=== PATIENT | male | born 1970 | race Caucasian/White ===

== ENCOUNTER 2019-01-14 17:11 | Emergency (ER) | payer SELFPAY ==
[2019-01-14 17:32] VITALS: BP 156/81; PULSE 83; TEMP 97.8; BMI 40.1
--- NOTE | 2019-01-14 18:29 | PDOC ---
History of Present Illness - General Chief Complaint: Pain, Acute Stated Complaint: KNEE PAIN Time Seen by Provider: 01/14/19 18:09 History Source: Patient Exam Limitations: Clinical Condition - History of Present Illness Initial Comments: 01/14/19 18:36 Patient with history of chronic knee arthritis the seen by pain management on oxycodone present for refill of medication as he is visiting from [place] and ran out of medication. Patient reported severe pain to right knee. Denies any other symptoms Timing/Duration: constant Past History - Past Medical History Allergies/Adverse Reactions: Allergies Allergy/AdvReac Type Severity Reaction Status Date / Time No Known Allergies Allergy Verified 01/14/19 17:30 Home Medications: Ambulatory Orders Oxycodone HCl [Roxicodone] 15 mg PO TID PRN #6 tablet MDD 3 01/14/19 - Suicide/Smoking/Psychosocial Hx Smoking History: Never smoked Information on smoking cessation initiated: No Hx Alcohol Use: No Drug/Substance Use Hx: No Review of Systems - Review of Systems Able to Perform ROS?: Yes Is the patient limited Spanish proficient: No Constitutional: No: Weakness HEENTM: No: Symptoms Reported Respiratory: No: Symptoms reported Cardiac (ROS): No: Symptoms Reported ABD/GI: No: Symptoms Reported Musculoskeletal: Yes: Symptoms Reported, See HPI, Joint Pain (right knee), Joint Stiffness (right knee) Neurological: No: Numbness, Paresthesia, Tingling All Other Systems: Reviewed and Negative *Physical Exam - Vital Signs Last Vital Signs Temp Pulse Resp BP Pulse Ox 97.8 F 83 16 156/81 99 01/14/19 17:30 01/14/19 17:30 01/14/19 17:30 01/14/19 17:30 01/14/19 17:30 - Physical Exam Comments: 01/14/19 18:38 GENERAL: Well developed, well nourished. Awake and alert in moderate acute distress. CARDIOVASCULAR: Regular rate and rhythm. No murmurs, rubs, or gallops. PULMONARY: No evidence of respiratory distress. MUSCULOSKELETAL : Moderate tenderness to lateral aspect of right knee. Increased tenderness with anterior posterior drawer tests. No knee subluxation or laxity. No bony deformities SKIN: Warm and dry. Normal capillary refill. No rashes. No jaundice. NEUROLOGICAL: Alert, awake, appropriate. No motor deficits in the lower extremities. Gait is normal without ataxia. PSYCHIATRIC: Cooperative. Good eye contact. Appropriate mood and affect. General Appearance: Yes: Nourished, Appropriately Dressed, Moderate Distress Medical Decision Making - Medical Decision Making 01/14/19 18:40 Patient with chronic knee arthritis present with complaint of pain to right knee and ran out of medication. Exam significant for moderate tenderness to right knee. Otherwise normal exam. I stop prescription monitoring shows no prescription for narcotics and system as patient is patient from [place] and [place] does not participate in prescription monitoring. Patient advised ER does not refill narcotic prescription will be given to do with of medication follow-up with pain management. Patient agrees and will follow up with pain management *DC/Admit/Observation/Transfer Diagnosis at time of Disposition: Arthritis of knee, right - Discharge Dispostion Disposition: HOME Condition at time of disposition: Stable Decision to Admit order: No - Prescriptions Prescriptions: Oxycodone HCl [Roxicodone] 15 mg PO TID PRN #6 tablet MDD 3 PRN Reason: Pain - Referrals Referrals: Bucky Ruiz MD [Staff Physician] - - Patient Instructions Printed Discharge Instructions: DI for Prescription Opioid Use Additional Instructions: Take medications as prescribed. Follow-up with referred to pain management for congestive refill for medication - Post Discharge Activity
== END 2019-01-14 18:41 | disposition home or self-care (01) ==
LOC: JERFT 17:11
DX: M13.861 Other specified arthritis, right knee (principal)
CPT/HCPCS: 99281-25